=== PATIENT | female | born 1995 | race American Indian/Alaskan Native ===

== ENCOUNTER 2021-12-15 23:40 | Emergency (ER) | payer MEDICAID | END 2021-12-15 23:45 | disposition left against medical advice (07) | LOC: ED 23:40 | DX: R10.9 Unspecified abdominal pain (principal); Z53.21 Procedure and treatment not carried out due to patient leaving prior to being seen by health care provider ==

== ENCOUNTER 2021-12-16 18:33 | Emergency (ER) | payer MEDICAID | END 2021-12-16 19:22 | disposition left against medical advice (07) | LOC: ED 18:33 | DX: R10.9 Unspecified abdominal pain (principal); Z53.21 Procedure and treatment not carried out due to patient leaving prior to being seen by health care provider ==